=== PATIENT | female | born 1940 | race Caucasian/White ===

== ENCOUNTER 2021-12-06 03:00 | Emergency (ER) | payer MEDICARE, BC ==
[~2021-12-06] VITALS: Ht 172.7 cm; Wt 70.8 kg
[2021-12-06 03:27] LABS: HEMATOCRIT 37.3 % (31.2-41.9); MEAN CORPUSCULAR HEMOGLOBIN 28.1 uug (24.7-32.8); MEAN CORPUSCULAR VOLUME 83.9 fL (75.5-95.3); PLATELET COUNT (AUTO) 274 K/uL (179-408)
[2021-12-06 03:35] LABS: CARBON DIOXIDE 26 mmol/L (21-32); CHLORIDE 99 mmol/L (98-107); GLUCOSE 108 mg/dL (74-106); UREA NITROGEN, BLOOD 17 mg/dL (7-18)
--- NOTE | 2021-12-06 05:45 | NUR ---
patient's daughter at bedside
--- NOTE | 2021-12-06 06:00 | NUR ---
Patient discharged to home in stable condition. Written and verbal after care instructions given. Patient verbalizes understanding of instructions. Stressed follow up or return to ER for worsening s/s. Patient is a/ox4, NAD noted. Patient is accompanied by her daughter
[2021-12-06 06:01] VITALS: BP 129/67
== END 2021-12-06 06:00 | disposition home or self-care (01) ==
LOC: ER 04:41
DX: G89.18 Other acute postprocedural pain (principal); M25.562 Pain in left knee; Z96.652 Presence of left artificial knee joint; Z91.81 History of falling; E78.5 Hyperlipidemia, unspecified
CPT/HCPCS: 36415; 73560; 83735; 85025; A4663